=== PATIENT | male | born 1995 | race Two or more races ===

== ENCOUNTER 2020-07-12 18:27 | Emergency (ER) | payer SELFPAY ==
[~2020-07-12] VITALS: Ht 177.8 cm; Wt 75.3 kg
[2020-07-12] MEDS ORDERED: KETOROLAC TROMETH 60MG/2ML VIAL IM ONE (21:30)
[2020-07-12 22:06] VITALS: BP 119/68
== END 2020-07-12 22:24 | disposition home or self-care (01) ==
LOC: ER 18:27
DX: S46.911A Strain of unspecified muscle, fascia and tendon at shoulder and upper arm level, right arm, initial encounter (principal); S16.1XXA Strain of muscle, fascia and tendon at neck level, initial encounter; Z88.0 Allergy status to penicillin; V49.9XXA Car occupant (driver) (passenger) injured in unspecified traffic accident, initial encounter; Y93.89 Activity, other specified; Y92.89 Other specified places as the place of occurrence of the external cause; Y99.8 Other external cause status
CPT/HCPCS: 70450; 71250; 72125; 74176; 96372; 99285; J1885